=== PATIENT | female | born 1945 | race Caucasian/White ===

== ENCOUNTER → 2017-08-11 | Outpatient (CLI) | payer MEDICARE, OTHER ==
[~2017-08-11] MED LIST: AMLODIPINE BESY10 MG PO; AMLODIPINE BESYL5 MG PO; ASPIR 8181 MG PO; ASPIRIN EC81 M1 PO; ASPIRIN81 M2 PO; BENADRYL25 MG PO; COLACE100 MG PO; FLEXERIL PO; FLONASE 0.05%50 MCG NASAL; GAS RELIEF 8080 MG PO; HYDROCODONE-AP1 EAC6 PO; KENALOG60 GM TP; LEVAQUIN 500 M500 M2 PO; LOTREL 10-20 M1 EACH; LOTREL 10-20 M1 EACH PO; MILK OF MA2400 MG/10 PO; NORCO 5-325 TA1 EACH PO; NORVASC 5 MG TAB5 MG PO; NORVASC2.5 MG PO; ORADENT 0.1% DEN5 G1 TOP; PLAVIX 75 MG TA75 M1 PO; PREDNISONE 5 MG5 M1 PO; PREMARIN0.3 MG PO; PRIMIDONE50 MG PO; PROLIA60 MG/1 ML SUBQ; RECLAST 55 MG/100 M IV; SENNA LAXATIVE1 EACH PO; TEARS NATURALE1 EACH OPHTHALMIC; TESSALON PERLE100 MG PO; TRAMADOL 50 MG50 MG PO; TUMS PO; TYLENOL325 MG PO; UNICOMPLEX M TA1 TA1 PO; VENTOLIN HFA 1818 GM INH; VICODIN 5-3001 EACH PO; VITAMIN D1000 UNI1 PO; VITAMIN D2000 UNIT PO; VITAMIN D5000 UNIT PO; XANAX 0.25 MG0.25 MG PO; XANAX 0.5 MG0.5 MG PO; ZANAFLEX2 MG PO; ZANAFLEX4 MG PO; ZOCOR40 MG PO; ZOLEDRONIC5 MG/100 M IV
== END ==
LOC: M.LAB 14:45
DX: D72.829 Elevated white blood cell count, unspecified (principal); I65.22 Occlusion and stenosis of left carotid artery; I63.9 Cerebral infarction, unspecified; E87.6 Hypokalemia; I73.9 Peripheral vascular disease, unspecified; I12.9 Hypertensive chronic kidney disease with stage 1 through stage 4 chronic kidney disease, or unspecified chronic kidney disease; N18.9 Chronic kidney disease, unspecified; J44.9 Chronic obstructive pulmonary disease, unspecified; E78.5 Hyperlipidemia, unspecified; E78.00 Pure hypercholesterolemia, unspecified; Z90.710 Acquired absence of both cervix and uterus

== ENCOUNTER 2017-10-15 23:03 | Emergency (ER) | payer MEDICARE, OTHER ==
[~2017-10-15] VITALS: Ht 160 cm; Wt 56.7 kg
[~2017-10-15 23:03] MED LIST changes: -AMLODIPINE BESY10 MG PO; -ASPIRIN81 M2 PO; -PROLIA60 MG/1 ML SUBQ; -ZANAFLEX2 MG PO
[2017-10-15] MEDS ORDERED: ZANAFLEX2 MG PO (23:19)
[2017-10-15] MEDS ORDERED: AMLODIPINE BESY10 MG PO (23:19)
[2017-10-15] MEDS ORDERED: PROLIA60 MG/1 ML SUBQ (23:19)
[2017-10-15] MEDS ORDERED: ASPIRIN81 M2 PO ×2 (23:20)
[2017-10-16 00:03] VITALS: BP 139/65
== END 2017-10-16 00:05 | disposition home or self-care (01) ==
LOC: M.ERS 23:03
DX: R04.0 Epistaxis (principal); I12.9 Hypertensive chronic kidney disease with stage 1 through stage 4 chronic kidney disease, or unspecified chronic kidney disease; N18.9 Chronic kidney disease, unspecified; E78.00 Pure hypercholesterolemia, unspecified; J44.9 Chronic obstructive pulmonary disease, unspecified; M81.0 Age-related osteoporosis without current pathological fracture; F17.210 Nicotine dependence, cigarettes, uncomplicated; Z90.89 Acquired absence of other organs; Z90.710 Acquired absence of both cervix and uterus; Z90.49 Acquired absence of other specified parts of digestive tract; Z88.0 Allergy status to penicillin; Z91.018 Allergy to other foods

== ENCOUNTER 2018-11-05 13:56 | Observation (INO) | payer MEDICARE, OTHER ==
[~2018-11-05] VITALS: Ht 154.9 cm; Wt 44.5 kg
[~2018-11-05 13:56] MED LIST changes: +AMLODIPINE BESY10 MG PO; +ASPIRIN81 M2 PO; +PROLIA60 MG/1 ML SUBQ; +ZANAFLEX2 MG PO
[2018-11-05 14:01] VITALS: BP 190/65
[2018-11-05 14:54] LABS: ABSOLUTE BASOPHILS 0.1 thou/uL (0.0-0.2); ABSOLUTE EOSINOPHILS 0.1 thou/uL (0.0-0.7); ABSOLUTE LYMPHOCYTES 2.1 thou/uL (0.8-5.3); ABSOLUTE MONOCYTES 0.8 thou/uL (0.0-1.2); BASOPHILS 0.6 %; HEMATOCRIT 41.6 % (37.0-47.0); HEMOGLOBIN 14.3 gm/dL (12.0-15.0); LYMPHOCYTES 14.9 %; MCHC 34.3 g/dL (28.0-37.0); MCV 96.2 fL (80.0-100.0); MONOCYTES 5.3 %; MPV 10.7 fl. (7.2-11.1); NUCLEATED RBCS 0 /100WBC; PLATELET COUNT* 180 thou/uL (150-400); POLYS 78.2 %; RBC 4.32 mil/uL (4.20-5.00); RDW-CV 13.2 % (10.5-14.5); WBC 14.1 thou/uL (4.0-11.0)
[2018-11-05 15:13] LABS: CALCIUM 9.7 mg/dL (8.5-10.1); CREATININE 0.9 mg/dL (0.6-1.3); POTASSIUM 3.6 mmol/L (3.5-5.1); TROPONIN-I LEVEL 0.07 ng/mL (<0.06)
[2018-11-05 15:19] LABS: ALBUMIN 4.4 g/dL (3.4-5.0); TOTAL BILIRUBIN 1.4 mg/dL (<0.1-1.0); TOTAL PROTEIN 7.6 g/dL (6.4-8.2)
--- NOTE | 2018-11-05 16:32 | EKG ---
[place] [address] ELECTROCARDIOGRAM REPORT Name: TREY MARIA Room: [facility]#: [id number] Admission: 11/05/18 Attend Phys: Discharge: Date of : 41 Report #: [id number] THIS REPORT FOR: //name// [facility] ED Test Date: 2018-11-05 Test Time: 14:10:01 Pat Name: TREY MARIA Department: Room: Gender: F [employer]: Maikel VASQUEZ : 1945 Requested By: Yoon Melvin Order Number: [id number] MD: Danie Fernandes Measurements Intervals [place] Rate: 94 P: 79 MN: 107 QRS: 52 QRSD: 115 T: 66 QT: 349 QTc: 437 Interpretive Statements Sinus rhythm Short MN interval Consider right atrial enlargement Nonspecific intraventricular conduction delay Minimal ST depression, inferior leads Compared to ECG 08/27/2015 14:51:23 Short MN interval now present Intraventricular conduction delay now present ST (T wave) deviation now present Electronically Signed On 11-05-2018 16:32:07 CDT by Danie Fernandes [email or web address] <ELECTRONICALLY SIGNED> By: Danie Fernandes MD, [facility] 11/05/18 1632 1410 1410 Danie Fernandes MD, [facility] /EPI
[2018-11-05 18:50] VITALS: BP 164/61
[2018-11-05 18:51] VITALS: BP 173/59
[2018-11-05 19:00] VITALS: BP 150/70
[2018-11-06] VITALS: BP 145/56
[2018-11-06 04:00] VITALS: BP 136/59
[2018-11-06 08:00] VITALS: BP 158/59
[2018-11-06] MEDS ORDERED: PREDNISONE 20 M20 MG PO (11:19)
[2018-11-06] MEDS ORDERED: IPRAT-ALBUT 0.5-3 ML INH (11:21)
[2018-11-06 11:24] VITALS: BP 158/59
--- NOTE | 2018-11-09 17:24 | CON ---
[address] [address] CONSULTATION Name: TREY MARIA Room: [address] Camelia M.R.#: [id number] Admission: 11/05/18 Attend Phys: Yasmeen Villalobos MD Discharge: 11/06/18 Date of : 41 Report #: [id number] THIS REPORT FOR: //name// CC: Yasmeen ALEJANDRA DO Leonie Alejandra DATE OF SERVICE: 11/06/2018 HISTORY OF PRESENT ILLNESS: The patient is a 73-year-old white female who I was asked to see in the hospital today because she did not feel well. The history is obtained from the patient as well as her . She has an extensive past medical history. She has a previous history of smoking for years. She had previous left carotid endarterectomy at [facility] years ago. She subsequently complained of leg pain and underwent aortobifemoral bypass surgery by Dr. Austin at [facility] several years ago. She had a prolonged postoperative course and eventually went to rehabilitation. She denied a history of heart disease. She previously was seen by my partner, Dr. Nguyen. She apparently has had a stress test in the past. Most recently, she has been followed by Dr. Lamar in the [facility]iology [facility]. She actually just saw Dr. Lamar in August. Her previous echocardiogram in 2015 showed mild mitral regurgitation with normal left ventricular function. She denies any recent chest pain, shortness of breath, palpitations. She sees Dr. Lamar in about every 6 months and he evaluates her lower extremity circulation and carotid arteries. She states she has not felt well for the past 5 days. She felt somewhat lightheaded, had a cough. She finally came to the Emergency Room yesterday and was admitted. I was asked to see her for further evaluation and treatment. She denied any fever, vomiting or bleeding. PAST MEDICAL HISTORY: She had hysterectomy. She has a history of hypertension. MEDICATIONS: On admission consists of the following: Amlodipine, aspirin, Zocor, hydrocodone. ALLERGIES: She has an intolerance to PENICILLIN. FAMILY HISTORY: Her father had a stroke. SOCIAL HISTORY: She is . She and her live in [place]. She has chronic back pain and uses a walker. Quit smoking years ago. Occasionally drinks alcohol. REVIEW OF SYSTEMS: She has had a previous history of stroke with right sided weakness. She has had no history of asthma, peptic ulcer disease, liver disease. She has a history of renal artery stenosis[place] [address] CONSULTATION Name: TREY MARIA Room: [address] [place] Louis#: [id number] Admission: 11/05/18 Attend Phys: Yasmeen Villalobos MD Discharge: 11/06/18 Date of : 41 Report #: [id number] psychiatric illness. No chronic skin condition. PHYSICAL EXAMINATION: GENERAL: Revealed an elderly frail appearing female, lying in bed. She is very slow moving. VITAL SIGNS: She had a blood pressure of 150/70, pulse 60. She is afebrile. HEENT: She was anicteric, conjunctiva pink. Mucous members appear dry. NECK: Veins do not appear distended, bilateral carotid bruits. CHEST: Clear to auscultation. CARDIOVASCULAR: Regular rate and rhythm, no murmur. ABDOMEN: Soft. EXTREMITIES: Had no edema. Dorsalis pedis pulse 1+ bilaterally. SKIN: Warm, dry. NEUROLOGIC: Nonfocal. LYMPH: No adenopathy. MUSCULOSKELETAL: No joint effusion. LABORATORY DATA: ECG on admission showed a sinus rhythm, nonspecific ST segment changes. Her workup yesterday in the Emergency Room, she had a portable chest x-ray that showed no acute abnormality. CT scan of the head was done without contrast that showed no acute abnormality. She had a CT scan of the chest using a PE protocol that showed no aortic dissection, no pulmonary embolus, no pericardial effusion. Her lab work, sodium 142, creatinine 0.9. Liver function studies were normal. Albumin 4.4. Troponin 0.07. TSH 0.8. White blood cell count 14.1, hemoglobin 14.3. Her urinalysis was not done. IMPRESSION AND RECOMMENDATIONS: 1. Fatigue. Reason unclear, suspect secondary to exercise intolerance. 2. Chronic back pain. The patient is on narcotics. 3. Previous carotid endarterectomy. The patient followed by Dr. Austin. 4. Peripheral arterial disease with previous aortobifemoral bypass. No significant claudication. 5. Hypertension. The patient is on a calcium marcell. 6. Hyperlipidemia. The patient is on a statin drug. 7. Previous tobacco abuse. <ELECTRONICALLY SIGNED> By: Tito Bruno MD, [facility] 11/09/18 1724 0936 [id number] Bruno MD, [facility] /nt
== END 2018-11-06 12:03 | disposition home or self-care (01) ==
LOC: M.ERS 13:56 → M.TBA-ER 17:02 → M.2W 18:41
PROVIDERS: Personal Emergency Response Attendant; ADMIT Internal Medicine
DX: R07.89 Other chest pain (principal); R10.13 Epigastric pain; J44.1 Chronic obstructive pulmonary disease with (acute) exacerbation; R79.1 Abnormal coagulation profile; R79.89 Other specified abnormal findings of blood chemistry; I12.9 Hypertensive chronic kidney disease with stage 1 through stage 4 chronic kidney disease, or unspecified chronic kidney disease; N18.9 Chronic kidney disease, unspecified; E78.00 Pure hypercholesterolemia, unspecified; M54.9 Dorsalgia, unspecified; G89.29 Other chronic pain; M81.0 Age-related osteoporosis without current pathological fracture; I73.9 Peripheral vascular disease, unspecified; E78.5 Hyperlipidemia, unspecified; R53.83 Other fatigue; Z79.899 Other long term (current) drug therapy; Z88.0 Allergy status to penicillin; Z90.89 Acquired absence of other organs; Z90.710 Acquired absence of both cervix and uterus; Z91.018 Allergy to other foods; Z87.891 Personal history of nicotine dependence

== ENCOUNTER → 2019-03-22 | Outpatient (CLI) | payer MEDICARE, OTHER ==
[~2019-03-22] MED LIST changes: +IPRAT-ALBUT 0.5-3 ML INH; +PREDNISONE 20 M20 MG PO
--- NOTE | 2019-03-22 14:25 | 2DMMODE ---
[place] [address] 2 D/M-MODE ECHOCARDIOGRAM Name: TREY MARIA Room: [facility]#: [id number] Admission: 03/22/19 Attend Phys: Leonie Abraham Discharge: Date of : 41 Date of Service: 03/22/19 1425 Report #: [id number] THIS REPORT FOR: //name// APPROVED REPORT Study performed: 03/22/2019 13:00:44 EXAM: Comprehensive 2D, Doppler, and color-flow Echocardiogram Patient Location: Out-Patient Status: routine BSA: 1.47 HR: 88 bpm BP: 161/83 mmHg Rhythm: NSR Other Information Study Quality: Adequate Indications Dyspnea 2D Dimensions IVSd: 9.38 (7-11mm) LVOT Diam: 18.07 (18-24mm) LVDd: 41.87 mm PWd: 8.00 (7-11mm) Ascending Ao: 23.50 (22-36mm) LVDs: 24.55 (25-40mm) Aortic Root: 23.17 mm Volumes Left Atrial Volume (Systole) LA ESV Index: 10.30 mL/m2 Aortic Valve AoV Peak Juan.: 1.27 m/s AO Peak Gr.: 6.46 mmHg LVOT Max P.54 mmHg AO Mean Gr.: 3.57 mmHg LVOT Mean P.03 mmHg LVOT Max V: 1.07 m/s AO V2 VTI: 25.27 cm LVOT Mean V: 0.65 m/s NATTY (VTI): 2.34 cm2 LVOT V1 VTI: 23.11 cm Mitral Valve E/A Ratio: 0.73 MV Decel. Time: 265.21 ms MV E Max Juan.: 0.79 m/[place] [address] 2 D/M-MODE ECHOCARDIOGRAM Name: TREY MAIRA Room: [facility]#: [id number] Admission: 03/22/19 Attend Phys: Leonie Abraham Discharge: Date of : 41 Date of Service: 03/22/19 1425 Report #: [id number] MV PHT: 76.91 ms MVA (PHT): 2.86 cm2 TDI E/Lateral E': 9.88 E/Medial E': 9.88 Medial E' Juan.: 0.08 m/s Lateral E' Juan.: 0.08 m/s Pulmonary Valve PV Peak Juan.: 1.27 m/s PV Peak Gr.: 6.43 mmHg Tricuspid Valve RAP Estimate: 5.00 mmHg TR Peak Gr.: 30.34 mmHg RVSP: 35.00 mmHg PA Pressure: 35.00 mmHg Left Ventricle The left ventricle is normal size. There is normal LV segmental wall motion. There is normal left ventricular wall thickness. Left ventricular systolic function is normal. The left ventricular ejection fraction is within the normal range. LVEF is 65-70%. Grade I - abnormal relaxation pattern. Right Ventricle The right ventricle is normal size. The right ventricular systolic function is normal. Atria The left atrium size is normal. The right atrium size is normal. Aortic Valve The aortic valve is normal in structure. No aortic regurgitation is present. There is no aortic valvular stenosis. Mitral Valve The mitral valve is normal in structure. Trace mitral regurgitation. No evidence of mitral valve stenosis. Tricuspid Valve The tricuspid valve is normal in structure. Mild tricuspid regurgitation. estimated pa pressure 35 mm Hg Pulmonic Valve Pulmonic valve is not well visualized. There is no pulmonic [place] [address] 2 D/M-MODE ECHOCARDIOGRAM Name: TREY MARIA Room: [facility]#: [id number] Admission: 03/22/19 Attend Phys: Leonie Abraham Discharge: Date of : 41 Date of Service: 03/22/19 1425 Report #: [id number] Great Vessels The aortic root is normal in size. IVC is not well visualized. Pericardium There is no pericardial effusion. <Conclusion> Left ventricular systolic function is normal. The left ventricular ejection fraction is within the normal range. <ELECTRONICALLY SIGNED> By: Tito Bruno MD, FACC 03/22/19 1425 1425 1425 Tito Bruno MD, FAC /INF
== END ==
LOC: M.CRD 12:37
DX: I36.1 Nonrheumatic tricuspid (valve) insufficiency (principal); Z88.0 Allergy status to penicillin; Z91.018 Allergy to other foods